=== PATIENT | male | born 1960 | race Caucasian/White ===

== ENCOUNTER 2022-01-06 07:54 | Emergency (ER) | payer MEDICAID ==
[~2022-01-06] VITALS: Ht 170.2 cm; Wt 79.8 kg
[2022-01-06 07:57] VITALS: BP 153/87
[2022-01-06] MEDS ORDERED: NACL 0.9% 2,000 ML IV SCH (08:25)
--- NOTE | 2022-01-06 09:00 | NUR ---
cher and flu swabbed at this time
--- NOTE | 2022-01-06 09:05 | NUR ---
61 y/o male bib self, c/o body aches for 2 weeks. pt states he has been taking tylenol with mild relief. pt also complains of polydipsia, polyuria, occasional dysuria, feeling weak and dizzy due to high blood sugars. skin is pink/warm/dry. a&o x4 with even and steady gait. lungs clear bl, heart rate even and regular. vss. patient positioned for comfort. hob elevated. bed down. ermd made aware of pt. pmh: dm2, arthritis nka med: metformin, tylenol
[2022-01-06 09:18] LABS: BASOPHILS % (AUTO) 0.1 % (0.0-2.0); HEMATOCRIT 36.8 % (36-52); HEMOGLOBIN 12.7 g/dL (12.0-18.0); LYMPHOCYTES # (AUTO) 0.7 K/uL (2.0-11.5); LYMPHOCYTES % (AUTO) 2.9 % (20.5-51.1); MEAN CORPUSCULAR HEMOGLOBIN 32 pg (27-31); MEAN CORPUSCULAR HGB CONC 35 g/dL (33-37); MEAN CORPUSCULAR VOLUME 91.2 fL (80-94); MONOCYTES # (AUTO) 1.1 K/uL (0.8-1.0); MONOCYTES % (AUTO) 4.5 % (1.7-9.3); NEUTROPHILS # (AUTO) 22.2 K/uL (1.8-7.7); NEUTROPHILS % (AUTO) 92.5 % (42.2-75.2); PLATELET COUNT (AUTO) 297 K/uL (140-450); RED BLOOD CELL COUNT(AUTO) 4.03 MIL/uL (4.20-6.10); RED CELL DISTRIBUTION WIDTH 12.8 % (11.6-13.7); WHITE BLOOD COUNT (AUTO) 23.9 K/uL (4.8-10.8)
--- NOTE | 2022-01-06 09:35 | NUR ---
pt ambulated with steady gait to bathroom at this time
[2022-01-06 09:38] LABS: ALBUMIN 2.7 g/dL (3.4-5.0); CARBON DIOXIDE 25.6 mmol/L (21-32); CREATININE 1.3 mg/dL (0.6-1.3); POTASSIUM 4.6 mmol/L (3.5-5.1); TOTAL BILIRUBIN 0.4 mg/dL (0.0-1.0)
[2022-01-06 10:04] LABS: APPEARANCE,URINE CLEAR (CLEAR); BILIRUBIN,URINE NEGATIVE (NEGATIVE); BLOOD, URINE NEGATIVE (NEGATIVE); COLOR,URINE YELLOW (YELLOW); LEUKOCYTE ESTERASE ,URINE NEGATIVE (NEGATIVE); NITRITE, URINE NEGATIVE (NEGATIVE); UGLUCOSE 3+ (NEGATIVE)
--- NOTE | 2022-01-06 10:15 | NUR ---
[facility] COLLECTED AND REPORTED
[2022-01-06 13:06] VITALS: BP 146/66
--- NOTE | 2022-01-06 13:06 | NUR ---
Patient discharged with v/s stable. Written and verbal after care instructions given and explained. Patient verbalized understanding. Ambulatory with steady gait. All questions addressed prior to discharge. Advised to follow up with PMD.
--- NOTE | 2022-01-10 19:52 | NUR ---
RECEIVED POSITIVE BLOOD CULTURE RESULTS. FORM GIVEN TO DR FRANKS, WAS INSTRUCTED TO CALL PT TO RETURN. ATTEMPTED TO CONTACT PT, SPOKE WITH PTS DAUGHTER, JARROD. PT IS AT [facility]. OFFERED TO FAX RESULTS TO FACILITY, SHE STATED HE IS ALREADY BEING TREATED FOR STAPHYLOCOCCUS AUREUS. DR FRANKS AWARE. FORM PLACED IN BINDER
== END 2022-01-06 13:06 | disposition home or self-care (01) ==
LOC: MED 07:54
DX: E87.1 Hypo-osmolality and hyponatremia (principal); Z20.822 Contact with and (suspected) exposure to COVID-19; E11.65 Type 2 diabetes mellitus with hyperglycemia; D72.829 Elevated white blood cell count, unspecified; E86.0 Dehydration; I10 Essential (primary) hypertension; Z79.4 Long term (current) use of insulin; Z79.899 Other long term (current) drug therapy
CPT/HCPCS: 36415; 71045; 80053; 81003; 82803; 83605; 83880; 84484; 85025; 87040; 87086; 87186; 87426; 87804; 93005; 96360; 99285; J7030